=== PATIENT | male | born 1975 | race African-American/Black ===

== ENCOUNTER 2019-10-11 15:06 | Emergency (ER) | payer OTHER ==
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
[2019-10-11 15:16] VITALS: BP 122/80; PULSE 79; TEMP 98; BMI 20.5
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
== END 2019-10-11 15:59 | disposition home or self-care (01) ==
LOC: JERFT 15:06
DX: M25.561 Pain in right knee (principal)
CPT/HCPCS: 99282-25

== ENCOUNTER 2019-12-11 20:56 | Emergency (ER) | payer OTHER ==
[2019-12-11 21:04] VITALS: BP 114/81; PULSE 91; TEMP 99; BMI 19.8
--- NOTE | 2019-12-11 21:05 | PDOC ---
History of Present Illness - General Stated Complaint: COVID TESTING History Source: Patient - History of Present Illness Timing/Duration: other (today) Past History - Medical History Allergies/Adverse Reactions: Allergies Allergy/AdvReac Type Severity Reaction Status Date / Time venom-honey bee Allergy Severe Difficulty Verified 10/11/19 15:17 [bee venom (honey bee)] Breathing Home Medications: Ambulatory Orders levETIRAcetam [Keppra] 500 mg PO BID 07/31/12 Divalproex Sodium [Depakote ER] 500 mg PO BID 04/18/15 Divalproex [Depakote -] 750 mg PO BID #60 tablet.ec 04/18/15 Phenytoin Sodium Extended 200 mg PO BID 04/18/15 Risperidone 4 mg PO HS 04/18/15 Risperidone [Risperdal M-Tab] 1 mg PO HS 04/18/15 levETIRAcetam [Keppra -] 1,250 mg PO BID #60 tablet 04/18/15 COPD: No Psychiatric Problems: Yes (SCHIZOPHRENIA) Seizures: Yes - Psycho-Social/Smoking History Smoking Status: Yes Smoking History: Never smoked Number of Cigarettes Smoked Daily: 10 'Breaking Loose' booklet given: 04/18/15 Review of Systems - Review of Systems Constitutional: No: Chills, Fever Respiratory: Yes: Cough. No: Shortness of Breath Cardiac (ROS): No: Chest Pain *Physical Exam - Physical Exam General Appearance: Yes: Appropriately Dressed. No: Apparent Distress HEENT: positive: Normal Voice Neck: positive: Supple Respiratory/Chest: positive: Lungs Clear, Normal Breath Sounds. negative: Respiratory Distress Cardiovascular: positive: Regular Rate, S1, S2 Integumentary: positive: Dry, Warm Neurologic: positive: Fully Oriented, Alert, Normal Mood/Affect Medical Decision Making - Medical Decision Making 12/11/19 21:03 Patient is a 44-year-old male with psych disorder who was sent from senior living to be ruled out for COVID as patient developed dry cough today. Patient denies any loss of taste smell, shortness of breath chest pain fever or chills. Patient well-appearing and stable. Clear for testing sent. Stable to return back to facility Discharge - Discharge Information Problems reviewed: Yes Clinical Impression/Diagnosis: Encounter for laboratory testing for COVID-19 virus Condition: Good Disposition: HOME - Follow up/Referral - Patient Discharge Instructions Patient Printed Discharge Instructions: [facility]-Coronavirus Instructions Additional Instructions: Patient's vitals were normal here today. Covid the testing was done and takes 2 to 3 days to come back. Patient will receive a call whether it is negative or positive but patient can also call the ER at [phone] for results - Post Discharge Activity
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
== END 2019-12-11 22:27 | disposition home or self-care (01) ==
LOC: JER 20:56
DX: Z11.59 Encounter for screening for other viral diseases (principal)
CPT/HCPCS: 99281-25; U0003